=== PATIENT | male | born 1975 | race Caucasian/White ===

== ENCOUNTER 2017-02-02 15:07 | Emergency (ER) | payer OTHER ==
[2017-02-02] MEDS ORDERED: Ketorolac 60 MG/2 ML SDV IM ONE (15:41)
--- NOTE | 2017-02-02 15:51 | EDM.PDOC ---
ED HPI GENERAL MEDICAL PROBLEM - General Chief Complaint: Upper Extremity Injury/Pain Stated Complaint: RT HAND NUMB AND PAIN Time Seen by Provider: 02/02/17 15:10 Source of Information: Reports: Patient History Limitations: Reports: No Limitations - History of Present Illness INITIAL COMMENTS - FREE TEXT/NARRATIVE: History of present illness: [42-year-old male comes in with complaints of right hand pain. Patient indicates that he had struck a piece of a, repeatedly with the palm of his hand and now has swelling and pain with the same hand.] Review of systems: As per history of present illness and below otherwise all systems reviewed and negative. Past medical history: As per history of present illness and as reviewed below otherwise noncontributory. Surgical history: As per history of present illness and as reviewed below otherwise noncontributory. Social history: No reported history of drug or alcohol abuse. Family history: As per history of present illness and as reviewed below otherwise noncontributory. Physical exam: HEENT: Atraumatic, normocephalic, pupils reactive, negative for conjunctival pallor or scleral icterus, mucous membranes moist, throat clear, neck supple, nontender, trachea midline. Lungs: Clear to auscultation, breath sounds equal bilaterally, chest nontender. Heart: S1S2, regular, negative for clicks, rubs, or JVD. Abdomen: Soft, nondistended, nontender. Negative for masses or hepatosplenomegaly. Negative for costovertebral tenderness. Pelvis: Stable nontender. Genitourinary: Deferred. Rectal: Deferred. Extremities: Right hand with mild swelling of the dorsal aspect and tenderness into the palmar aspect at digit 4 and 5 negative for cords or calf pain. Neurovascular unremarkable. Neuro: Awake, alert, oriented. Cranial nerves II through XII unremarkable. Cerebellum unremarkable. Motor and sensory unremarkable throughout. Exam nonfocal. Diagnostics: [X-ray right hand] Therapeutics: [Norflex, Toradol] Impression: [Hand pain] Plan: [Solu-Medrol, Norflex, meloxicam follow-up with PCP] Definitive disposition and diagnosis as appropriate pending reevaluation and review of above. Right Hand Pain Score (Numeric/FACES): 8 - Related Data Allergies Allergy/AdvReac Type Severity Reaction Status Date / Time amitriptyline Allergy Anaphylactic Verified 02/02/17 16:23 Shock ampicillin Allergy Rash Verified 02/02/17 16:23 pregabalin [From Lyrica] Allergy Confusion Verified 02/02/17 16:23 Home Meds: Home Meds Ibuprofen [Advil] 02/02/17 [History] Review of Systems - Review of Systems Review Of Systems: See Below (History of present illness) ED EXAM, GENERAL - Physical Exam Exam: See Below (See history of present illness) Course - Vital Signs Last Recorded V/S: Last Vital Signs Temp 36.9 C 02/02/17 15:39 Pulse 71 02/02/17 15:39 Resp 18 02/02/17 15:39 BP 141/108 H 02/02/17 15:39 Pulse Ox 97 02/02/17 15:39 - Orders/Labs/Meds Orders: Active Orders 24 hr Category Date Time Status Orphenadrine [Norflex] Med 02/02/17 15:45 Active 60 mg IM Q12H Medication Orders Orphenadrine Citrate (Norflex) 60 mg IM Q12H VICKY Meds: Medications Generic Name Dose Route Start Last Admin Trade Name Freq PRN Reason Stop Dose Admin Orphenadrine Citrate 60 mg 02/02/17 15:45 Norflex IM Q12H VICKY Discontinued Medications Generic Name Dose Route Start Last Admin Trade Name Freq PRN Reason Stop Dose Admin Ketorolac Tromethamine 60 mg 02/02/17 15:41 Toradol IM 02/02/17 15:42 ONETIME ONE Departure - Departure Time of Disposition: 16:34 Disposition: Home, Self-Care 01 Condition: Good Clinical Impression: Hand pain, right - Discharge Information Referrals: PCP,None [Primary Care Provider] - Forms: ED Department Discharge Additional Instructions: The following information is given to patients seen in the emergency department who are being discharged to home. This information is to outline your options for follow-up care. We provide all patients seen in our emergency department with a follow-up referral. The need for follow-up, as well as the timing and circumstances, are variable depending upon the specifics of your emergency department visit. If you don't have a primary care physician on staff, we will provide you with a referral. We always advise you to contact your personal physician following an emergency department visit to inform them of the circumstance of the visit and for follow-up with them and/or the need for any referrals to a consulting specialist. The emergency department will also refer you to a specialist when appropriate. This referral assures that you have the opportunity for follow-up care with a specialist. All of these measure are taken in an effort to provide you with optimal care, which includes your follow-up. Under all circumstances we always encourage you to contact your private physician who remains a resource for coordinating your care. When calling for follow-up care, please make the office aware that this follow-up is from your recent emergency room visit. If for any reason you are refused follow-up, please contact the [facility] Emergency Department at and asked to speak to the emergency department charge nurse. Follow-up with primary care provider one to 2 days Take medication as directed Return to ED as needed as discussed - My Orders Last 24 Hours: My Active Orders 02/02/17 15:45 Orphenadrine [Norflex] 60 mg IM Q12H - Assessment/Plan Last 24 Hours: My Active Orders 02/02/17 15:45 Orphenadrine [Norflex] 60 mg IM Q12H
--- NOTE | 2017-02-02 16:25 | CR ---
EXAMINATION: Right hand HISTORY: Pain COMPARISON: None TECHNIQUE: AP and lateral views FINDINGS/IMPRESSION: The lumbar spinal alignment is normal. The vertebral body heights and disc space s appear well-maintained. There is no fracture or dislocation. Bone mineralization is normal.
== END 2017-02-02 17:30 | disposition home or self-care (01) ==
LOC: MW.ED 15:07
DX: M79.641 Pain in right hand (principal); Z88.1 Allergy status to other antibiotic agents
CPT/HCPCS: 73120-26-RT; 73120-RT; 99282; 99283; L3908